=== PATIENT | male | born 1995 | race Caucasian/White ===

== ENCOUNTER 2022-11-06 10:14 | Outpatient (REF) | payer OTHER, SELFPAY ==
--- NOTE | ~2022-11-06 | XR_ITS ---
EXAMINATION: XR BILATERAL HIPS WITH AP PELVIS CLINICAL INFORMATION: Right hip pain with prosthetic right leg COMPARISON: None available. TECHNIQUE: AP view of the pelvis and 3 additional views of each hip were obtained. FINDINGS: The bones and soft tissues are normal. No fracture. Sacroiliac and hip joints are normal. Pubic symphysis is normal. No abnormal soft tissue calcifications. XR/XR hips WARD min 3V IMPRESSION: Normal pelvis and hips.
[2022-11-06 12:17] LABS: C Reactive Protein 0.52 mg/dL (< or = 0.50)
[2022-11-06 12:58] LABS: Rheumatoid Factor < 13.0 IU/mL (<15.0)
[2022-11-06 15:03] LABS: Erythrocyte Sedimentation Rate 5 MM/HR (0-15)
[2022-11-08 12:48] LABS: Antibody to SS-A Antigen <1.0 NEG AI (<1.0 NEG); Antibody to SS-B Antigen <1.0 NEG AI (<1.0 NEG)
[2022-11-08 14:42] LABS: Cyclic Citrullinated Peptide <16 UNITS
[2022-11-10 15:28] LABS: Anti Nuclear Antibody Screen NEGATIVE (NEGATIVE)
[2022-11-14 14:29] LABS: HLA B27 Negative (Negative)
== END 2022-11-06 10:15 | disposition home or self-care (01) ==
LOC: HO.HMGCX 10:14
PROVIDERS: PCP Nurse Practitioner Family; Visit Provider Nurse Practitioner Family
DX: M25.50 Pain in unspecified joint (principal); M25.552 Pain in left hip; M25.551 Pain in right hip
CPT/HCPCS: 36415; 73522; 85652; 86038; 86039; 86140; 86200; 86235; 86431; 86812

== ENCOUNTER 2023-05-06 08:33 | Outpatient (AMB) | payer OTHER, SELFPAY ==
[2023-05-06 08:38] VITALS: BP 120/68; PULSE 62; O2SAT 99; BMI 29.2
--- NOTE | 2023-05-06 08:38 | MHC.PC.OV ---
Vital Signs 05/06/23 08:38 Height 5 ft 7 in Weight 186 lb 4 oz BMI 29.2 BP 120/68 Blood Pressure Location Rt brachial Position Sitting Pulse 62 Pulse Source Pulse Oximeter Pulse Oximetry (%) 99 Oxygen Delivery Method Room Air Intake Visit Reasons: 6 month follow up arthralgia Allergies No Known Allergies Allergy (Verified 05/06/23 08:50) Medication List - Last Reconciled 05/06/23 by ADELA Carter omeprazole 20 mg PO DAILY Tobacco use date assessed: 05/06/23 Dental Screening Dental Screen Date: 05/06/23 Did you have a dental visit in the last 12 months?: Yes Did you have a dental problem in the last 6 months where you did not have access to dental care?: No Was dental information given to patient?: Patient has dentist HPI 6 month follow up arthralgia HPI Details Pt is here for a PE. Will order labs. Pt has a prosthetic right leg (AKA). He is going for a new prosthetic next month. [facility] Social History Housing: House Patient Tobacco Use Status: Current everyday Tobacco user Cigarettes Per Day: 5 e-Cigarette/Vaping Use: Never Used service: No Current occupational status: employed Cognitive needs: No Hearing needs: No Vision needs: Yes Questionnaire Thrive Questionnaire Date Thrive assessed: 05/07/22 JOCELYN-7 AMB Questionnaire JOCELYN-7 Date JOCELYN - 7 assessed: 05/07/22 Source: Developed by Drs. Zion Mckenna, Sabi Rao, Eliseo Mayfield and colleagues, with an educational radha from [employer] [place]. Review of Systems Const Denies chills and Denies fever(s) Eyes Denies blurry vision ENT Denies vertigo, Denies dizziness and Denies sore throat Card Denies chest pain at rest, Denies chest pain with activity, Denies diaphoresis, Denies dyspnea and Denies dyspnea on exertion Resp Denies cough, Denies dyspnea, Denies dyspnea on exertion and Denies wheezing GI Denies abdominal pain, Denies melena, Denies hematochezia, Denies constipation, Denies diarrhea and Denies loose stools Denies hematuria Musc Denies numbness and Denies tingling Skin/Breast Denies lesions Neuro Denies vertigo, Denies dizziness, Denies numbness and Denies tingling Psych Denies anxiety, Denies depression, Denies homicidal ideation, Denies suicidal ideation and Denies other (substance abuse) Aller/Immun Denies wheezing Physical exam (Primary Care) Vital Signs: Last Vital Signs Pulse 62 05/06/23 08:38 BP 120/68 05/06/23 08:38 Pulse Ox 99 05/06/23 08:38 Oxygen Delivery Method Room Air 05/06/23 08:38 BMI result Body Mass Index 29.2 Tobacco/Smoking Status: Tobacco use Status Tobacco use date assessed 05/06/23 05/06/23 08:44 Patient Tobacco Use Status Current everyday Tobacco 05/06/23 08:44 e-Cigarette/Vaping Use Never Used 05/06/23 08:44 Thrive Assessment: Date of Thrive Assessment Date Thrive assessed 05/07/22 05/06/23 08:44 Const General: cooperative Nutritional Appearance: well nourished Orientation/consciousness: patient oriented x3 HENMT Head: Yes normal to inspection, Yes normocephalic and Yes atraumatic Ears: TM's normal bilaterally Eyes General: appearance normal, both eyes and all related structures Alignment and Position: alignment normal and position normal Neck Neck: Yes normal visual inspection and Yes no lymphadenopathy Thyroid: Thyroid normal Resp Effort & Inspection: normal respiratory effort Auscultation: clear to auscultation bilaterally Cardio Rate: regular rate Rhythm: regular rhythm Heart sounds: S1 normal heart sound present, S2 normal heart sound present and no murmurs GI Palpation (GI): Soft to palpation and nontender Auscultation: normal bowel sounds Male General Exam: Yes normal external exam Penis: normal penis Scrotum: scrotum normal, testes descended bilaterally and no inguinal hernias Testes: no testicular mass Skin Rashes: no rashes Neuro General: patient oriented x3 Romberg Test: Negative Extrem Other: prosthetic right leg (AKA) Psych Appearance: grossly normal Mental Status: mental status grossly normal Speech and movement: Normal speech and movement present Affect: normal affect Attitude: cooperative Thought process: Normal thought process present Thought content: Normal thought content present Insight: Good insight present (Psych) Judgement: Good judgement present (Psych) Assessment and Plan Assessment & Plan (1) Physical exam: Code(s): Z00.00 - Encounter for general adult medical examination without abnormal findings Plan The patient agreed to the use of a medical education manager for this encounter. Scribed for ADELA Ray by Janelle Franco medical education manager, on 05/06/2023 at 08:45 EST. Coding Level of Care Code Est Pt Prev Care 18-39y(23643) Diagnoses Physical exam Z00.00
== END 2023-05-06 08:57 | disposition home or self-care (01) ==
PROVIDERS: Visit Provider Nurse Practitioner Family
DX: Z00.00 Encounter for general adult medical examination without abnormal findings (principal)
CPT/HCPCS: 99395

== ENCOUNTER 2023-05-22 14:20 | Outpatient (REF) | payer OTHER, SELFPAY ==
[2023-05-22 16:30] LABS: MANUAL DIFF FLAG NO
[2023-05-22 16:38] LABS: Basophils Percent Auto 0.9 % (0-2); Eosinophils Absolute Auto 0.2 X10*3/uL (0.0-0.4); Eosinophils Percent Auto 4.9 % (0-4); Hemoglobin 14.7 g/dl (14.0-18.0); Imm Gran Abs Auto 0.01 X10*3/uL (0.00-0.03); Imm Gran Pct Auto 0.2 % (0.0-0.4); Lymphocytes Absolute Auto 1.1 X10*3/uL (1.2-4.9); Lymphocytes Percent Auto 23.7 % (20-40); Mean Corpuscular HGB Conc 33.4 g/dl (31.0-36.0); Mean Corpuscular Hemoglobin 29.9 pg (27.0-33.0); Mean Corpuscular Volume 89.4 fL (80.0-98.0); Mean Platelet Volume 8.6 fL (9.4-12.4); Monocytes Absolute Auto 0.6 X10*3/uL (0.1-1.2); Monocytes Percent Auto 12.4 % (2-11); Neutrophils Absolute Auto 2.7 x10*3/uL (2.0-8.3); Neutrophils Percent Auto 57.9 % (45-73); Platelet Count 257 X10*3/uL (160-400); Red Blood Count 4.92 X10*6/uL (4.60-5.80); Red Cell Distribution Width 12.9 % (11.0-16.0); White Blood Count 4.7 X10*3/uL (4.8-10.8)
[2023-05-22 16:52] LABS: Alanine Aminotransferase 31 U/L (0-40); Albumin Level 4.2 g/dL (3.5-5.0); Alkaline Phosphatase 86 U/L (39-117); Amylase 36 U/L (28-100); Anion Gap 16 (12-20); Aspartate Amino Transferase 38 U/L (5-37); Bilirubin Total 0.3 mg/dL (0.0-1.0); Blood Urea Nitrogen 23 mg/dL (9-16); Calcium 9.7 mg/dL (8.4-10.2); Carbon Dioxide 23 mmol/L (22-29); Chloride 106 mmol/L (96-108); Estimated Glomerular Filt Rate > 60; Glucose Random 84 mg/dL (60-115); Potassium 4.8 mmol/L (3.3-5.1); Sodium 140 mmol/L (135-145); Total Protein 7.1 g/dL (6.5-8.0)
[2023-05-22 17:18] LABS: Valproate 50.3 mcg/mL (50.0-100.0)
== END 2023-05-22 14:21 | disposition home or self-care (01) ==
LOC: HO.HMGCLDS 14:20
PROVIDERS: PCP Nurse Practitioner Family; Visit Provider Clinical Nurse Specialist Psychiatric/Mental Health
DX: F39 Unspecified mood [affective] disorder (principal)
CPT/HCPCS: 36415; 80053; 80164; 82150; 85025

== ENCOUNTER 2024-05-19 11:02 | Outpatient (AMB) | payer OTHER, SELFPAY ==
[2024-05-19 11:07] VITALS: BP 106/70; PULSE 116; O2SAT 97; BMI 30.9
--- NOTE | 2024-05-19 11:07 | A.OFFPC_ITS ---
Vital Signs 05/19/24 11:07 05/19/24 11:15 Height 5 ft 7 in Weight 197 lb 6 oz BMI 30.9 BP 106/70 Blood Pressure Location Rt brachial Position Sitting Pulse 116 H 99 Pulse Source Pulse Oximeter Pulse Oximeter Pulse Oximetry (%) 97 Intake Visit Reasons: annual PE Intake Note: pt is here for PE Refrigeration Engineer Required: No Accompanied by: Self / Same As Patient Allergies No Known Allergies Allergy (Verified 05/19/24 12:27) Medication List - Last Reconciled 05/19/24 by ADELA Carter bupropion HCl XL 300 mg PO DAILY clonidine HCl 0.2 mg PO TID divalproex 500 mg PO TID gabapentin 300 mg PO TID omeprazole 20 mg PO DAILY quetiapine 100 mg PO BEDTIME Tobacco use date assessed: 05/19/24 Dental Screening Dental Screen Date: 05/19/24 Did you have a dental visit in the last 12 months?: Yes Did you have a dental problem in the last 6 months where you did not have access to dental care?: No Was dental information given to patient?: Patient has dentist HPI annual PE HPI Details Pt is here for a PE. Will order labs. Pt continues to smoke. Educated on the dangers of this. Pt has a psychiatrist [facility] Surgical History No pertinent past surgical history Social History Housing: House Patient Tobacco Use Status: Current everyday Tobacco user Cigarettes Per Day: 5 e-Cigarette/Vaping Use: Never Used service: No Current occupational status: employed Cognitive needs: No Hearing needs: No Vision needs: Yes Questionnaire PHQ-9 Over the last 2 weeks, how often have you been bothered by any of the following problems? 1. Little interest or pleasure in doing things: not at all 2. Feeling down, depressed, or hopeless: not at all 3. Trouble falling or staying asleep, or sleeping too much: not at all 4. Feeling tired or having little energy: not at all 5. Poor appetite or overeating: nearly every day 6. Feeling bad about yourself - or that you are a failure or have let yourself or your family down: not at all 7. Trouble concentrating on things, such as reading the newspaper or watching television: not at all 8. Moving or speaking so slowly that other people could have noticed. Or the opposite - being so fidgety or restless that you have been moving around a lot more than usual: not at all 9. Thoughts that you would be better off or of hurting yourself in some way: not at all Total score: 3 Depression Screening Interpretation: Negative Depression Screening Done: Yes 15187 - PHQ-9 Billing: Yes Source: Developed by Drs. Zion Mckenna, Sabi Rao, Eliseo Mayfield and colleagues, with an educational radha from [employer]. Thrive Questionnaire Date Thrive assessed: 05/19/24 I am a: Patient What is your living situation today?: I have a steady place to live Within the past 12 months, did the food you bought not last and you didn't have the money to get more?: Never true Within the past 12 months, did you worry whether your food would run out before you got money to buy more?: Never true Do you have trouble paying for medicines?: No Do you have trouble getting transportation to medical appointments?: No Do you have trouble paying your heating and electricity bill?: No Do you have trouble taking care of your child, family member or friend?: No Do you have trouble with day-to-day activities such as bathing, preparing meals, shopping, managing finances, etc.?: No Are you currently unemployed and looking for a job?: I choose not to answer this question Are you interested in more education?: Yes Please select the resources that you would like help with: Job search/training Currently or been in a relationship where the following occur: No concerns reported THRIVE Score: 0 AUDIT C Alcohol Use Questionnaire (AUDIT-C) 1. How often do you have a drink containing alcohol?: Never 3. How often do you have six or more drinks on one occasion?: Never Total Score: 0 Score Reviewed/Action Taken: Yes JOCELYN-7 AMB Questionnaire JOCELYN-7 Date JOCELYN - 7 assessed: 05/19/24 Feeling nervous, anxious, or on edge: 0 = Not at all Not being able to stop or control worryin = Not at all Worrying too much about different things: 0 = Not at all Trouble relaxin = Not at all Being so restless that it is hard to sit still: 0 = Not at all Becoming easily annoyed or irritable: 1 = Several days Feeling afraid as if something awful might happen: 0 = Not at all Total JOCELYN-7 score (0-4 normal; 5-9 mild; 10-14 moderate; 15-21 severe): 1 Source: Developed by Drs. Zion Mckenna, Sabi Rao, Eliseo Mayfield and colleagues, with an educational radha from [employer]. JOCELYN-7 Assessment Billing JOCELYN-7 Assessment Tool: JOCELYN-7 Assessment 23150 Review of Systems Const Denies chills and Denies fever(s) Eyes Denies blurry vision ENT Denies vertigo, Denies dizziness and Denies sore throat Card Denies chest pain at rest, Denies chest pain with activity, Denies diaphoresis, Denies dyspnea and Denies dyspnea on exertion Resp Denies cough, Denies dyspnea, Denies dyspnea on exertion and Denies wheezing GI Denies abdominal pain, Denies melena, Denies hematochezia, Denies constipation, Denies diarrhea and Denies loose stools Denies hematuria Musc Denies numbness and Denies tingling Skin/Breast Denies lesions Neuro Denies vertigo, Denies dizziness, Denies numbness and Denies tingling Psych Denies anxiety, Denies depression, Denies homicidal ideation, Denies suicidal ideation and Denies other (substance abuse) Aller/Immun Denies wheezing Physical exam (Primary Care) Vital Signs: Last Vital Signs Pulse 99 05/19/24 11:15 BP 106/70 05/19/24 11:07 Pulse Ox 97 05/19/24 11:07 BMI result Body Mass Index 30.9 Tobacco/Smoking Status: Tobacco use Status Tobacco use date assessed 05/19/24 05/19/24 11:08 Patient Tobacco Use Status Current everyday Tobacco 05/19/24 11:08 e-Cigarette/Vaping Use Never Used 05/19/24 11:08 PHQ-9: PHQ-9 Score PHQ-9: Total score 3 05/19/24 11:38 Depression Screening Interpretation: Negative Thrive Assessment: Date of Thrive Assessment Date Thrive assessed 10/09/24 10/09/24 11:08 Currently or been in a relationship where the following occur: No concerns reported Const General: cooperative Nutritional Appearance: well nourished Orientation/consciousness: patient oriented x3 HENMT Head: Yes normal to inspection, Yes normocephalic and Yes atraumatic Ears: TM's normal bilaterally Eyes General: appearance normal, both eyes and all related structures Alignment and Position: alignment normal and position normal Neck Neck: Yes normal visual inspection, Yes no lymphadenopathy and Yes supple Resp Effort & Inspection: normal respiratory effort Auscultation: clear to auscultation bilaterally Cardio Rate: regular rate Rhythm: regular rhythm Heart sounds: S1 normal heart sound present, S2 normal heart sound present and no murmurs GI Palpation (GI): Soft to palpation and nontender Auscultation: normal bowel sounds Male General Exam: Yes normal external exam Penis: normal penis Scrotum: scrotum normal, testes descended bilaterally and no inguinal hernias Testes: no testicular mass Neuro General: patient oriented x3, moves all extremities, no focal motor deficits and deep tendon reflexes 2+ bilaterally Romberg Test: Negative Extrem Other: right AKA, prosthetic present Psych Appearance: grossly normal Mental Status: mental status grossly normal Speech and movement: Normal speech and movement present Affect: normal affect Attitude: cooperative Thought process: Normal thought process present Thought content: Normal thought content present Insight: Good insight present (Psych) Judgement: Good judgement present (Psych) Coding Level of Care Code Est Pt Prev Care 18-39y(78892) Diagnoses Physical exam Z00.00 Smoker F17.200 Additional Codes JOCELYN-7 Assessment Billing - JOCELYN-7 Assessment Tool: JOCELYN-7 Assessment 41062 ([id number]) Assessment & Plan Assessment & Plan (1) Physical exam: Code(s): Z00.00 - Encounter for general adult medical examination without abnormal findings Category: Medical Plan: Labs ordered (2) Smoker: Code(s): F17.200 - Nicotine dependence, unspecified, uncomplicated Category: Social Hx Plan: Educated on the dangers of smoking Plan The patient agreed to the use of a medical management trainer for this encounter. Scribed for ADELA Ray by Janelle Franco medical management trainer, on 05/19/2024 at 11:35 EST. Orders: Orders Complete Blood Count Auto Diff Today Z00.00 - Encounter for general adult medical examination without abnormal findings Comprehensive [place]. Panel Fast Today Z00.00 - Encounter for general adult medical examination without abnormal findings TSH reflex Free T4 Today Z00.00 - Encounter for general adult medical examination without abnormal findings UA CC w/rflx Micro + Cult Today Z00.00 - Encounter for general adult medical examination without abnormal findings Lipid Panel Today Z00.00 - Encounter for general adult medical examination without abnormal findings
[2024-05-19 11:15] VITALS: PULSE 99
== END 2024-05-19 11:50 | disposition home or self-care (01) ==
PROVIDERS: PCP Nurse Practitioner Family; Visit Provider Nurse Practitioner Family
DX: Z00.00 Encounter for general adult medical examination without abnormal findings (principal); F17.200 Nicotine dependence, unspecified, uncomplicated

== ENCOUNTER → 2024-05-19 11:02 | Outpatient (BNVA) | payer OTHER, SELFPAY | PROVIDERS: PCP Nurse Practitioner Family; Visit Provider Nurse Practitioner Family | DX: Z00.00 Encounter for general adult medical examination without abnormal findings (principal); F17.200 Nicotine dependence, unspecified, uncomplicated; Z71.6 Tobacco abuse counseling | CPT/HCPCS: 96127 ==

== ENCOUNTER 2024-05-28 09:38 | Outpatient (REF) | payer OTHER, SELFPAY ==
[2024-05-28 11:02] LABS: MANUAL DIFF FLAG NO
[2024-05-28 11:15] LABS: Basophils Absolute Auto 0.1 X10*3/uL (0.0-0.2); Basophils Percent Auto 0.7 % (0-2); Eosinophils Absolute Auto 0.2 X10*3/uL (0.0-0.4); Eosinophils Percent Auto 2.6 % (0-4); Hematocrit 41.8 % (42.0-52.0); Hemoglobin 13.9 g/dl (14.0-18.0); Imm Gran Abs Auto 0.03 X10*3/uL (0.00-0.03); Imm Gran Pct Auto 0.4 % (0.0-0.4); Lymphocytes Absolute Auto 1.8 X10*3/uL (1.2-4.9); Mean Corpuscular HGB Conc 33.3 g/dl (31.0-36.0); Mean Corpuscular Volume 90.1 fL (80.0-98.0); Mean Platelet Volume 9.1 fL (9.4-12.4); Monocytes Absolute Auto 0.5 X10*3/uL (0.1-1.2); Monocytes Percent Auto 6.8 % (2-11); Neutrophils Absolute Auto 4.4 x10*3/uL (2.0-8.3); Neutrophils Percent Auto 63.5 % (45-73); Platelet Count 288 X10*3/uL (160-400); Red Blood Count 4.64 X10*6/uL (4.60-5.80); White Blood Count 6.9 X10*3/uL (4.8-10.8)
[2024-05-28 11:49] LABS: Alanine Aminotransferase 14 U/L (0-40); Alkaline Phosphatase 74 U/L (39-117); Anion Gap 11 (12-20); Aspartate Amino Transferase 16 U/L (5-37); Bilirubin Total 0.3 mg/dL (0.0-1.0); Blood Urea Nitrogen 18 mg/dL (9-16); Calcium 9.3 mg/dL (8.4-10.2); Carbon Dioxide 28 mmol/L (22-29); Chloride 108 mmol/L (96-108); Cholesterol 188 mg/dL (<200); Estimated Glomerular Filt Rate > 60; Glucose Fasting 109 mg/dL (60-99); HDL Cholesterol 33 mg/dL (>40); LDL Cholesterol Calculated 114 mg/dL (<100); Potassium 4.5 mmol/L (3.3-5.1); Sodium 142 mmol/L (135-145); Total Protein 6.6 g/dL (6.5-8.0); Triglycerides 207 mg/dL (<150)
[2024-05-28 12:12] LABS: TSH reflex Free T4 1.19 uIU/mL (0.32-4.0)
[2024-05-28 13:22] LABS: Appearance Urine Cloudy; Color Urine Yellow; Glucose Urine UA Negative (Negative); Leukocyte Esterase Urine Negative (Negative); Nitrite Urine Negative (Negative); PH 8.5 (5.0-9.0); Specific Gravity - Urine 1.025 (1.005-1.025); Urine Blood Negative (Negative); Urine Ketones Trace mg/dL (Negative); Urine Protein Negative (Neg-Trace)
== END 2024-05-28 09:39 | disposition home or self-care (01) ==
LOC: HO.HMGCLDS 09:38
PROVIDERS: PCP Nurse Practitioner Family; Visit Provider Nurse Practitioner Family
DX: Z00.00 Encounter for general adult medical examination without abnormal findings (principal)
CPT/HCPCS: 36415; 80053; 80061; 81003; 84443; 85025

== ENCOUNTER 2024-06-17 08:57 | Outpatient (REF) | payer OTHER, SELFPAY ==
[2024-06-17 13:29] LABS: MANUAL DIFF FLAG NO
[2024-06-17 13:38] LABS: Basophils Absolute Auto 0.1 X10*3/uL (0.0-0.2); Basophils Percent Auto 0.7 % (0-2); Eosinophils Absolute Auto 0.3 X10*3/uL (0.0-0.4); Eosinophils Percent Auto 3.4 % (0-4); Hematocrit 49.2 % (42.0-52.0); Hemoglobin 16.4 g/dl (14.0-18.0); Imm Gran Abs Auto 0.03 X10*3/uL (0.00-0.03); Imm Gran Pct Auto 0.3 % (0.0-0.4); Immature Retic Fraction 8.9 % (2.3-13.4); Lymphocytes Absolute Auto 2.1 X10*3/uL (1.2-4.9); Lymphocytes Percent Auto 23.4 % (20-40); Mean Corpuscular HGB Conc 33.3 g/dl (31.0-36.0); Mean Corpuscular Hemoglobin 29.9 pg (27.0-33.0); Mean Corpuscular Volume 89.8 fL (80.0-98.0); Mean Platelet Volume 9.4 fL (9.4-12.4); Monocytes Absolute Auto 0.7 X10*3/uL (0.1-1.2); Monocytes Percent Auto 7.7 % (2-11); Neutrophils Absolute Auto 5.7 x10*3/uL (2.0-8.3); Neutrophils Percent Auto 64.5 % (45-73); Platelet Count 284 X10*3/uL (160-400); Red Blood Count 5.48 X10*6/uL (4.60-5.80); Retic HGB Equivalent 34.4 pg (30.0-35.0); Reticulocyte Percent 1.6 % (0.5-1.8); Reticulocytes Absolute 0.086 X10*6/uL (0.026-0.095); White Blood Count 8.9 X10*3/uL (4.8-10.8)
[2024-06-17 13:56] LABS: Alanine Aminotransferase 18 U/L (0-40); Albumin Level 4.9 g/dL (3.5-5.0); Alkaline Phosphatase 92 U/L (39-117); Anion Gap 15 (12-20); Aspartate Amino Transferase 30 U/L (5-37); Bilirubin Total 0.5 mg/dL (0.0-1.0); Blood Urea Nitrogen 22 mg/dL (9-16); Calcium 9.7 mg/dL (8.4-10.2); Carbon Dioxide 24 mmol/L (22-29); Chloride 106 mmol/L (96-108); Estimated Glomerular Filt Rate > 60; Glucose Fasting 106 mg/dL (60-99); Iron 78 mcg/dL (45-160); Percent Iron Saturation 25 % (15-50); Potassium 4.6 mmol/L (3.3-5.1); Sodium 140 mmol/L (135-145); Total Iron Binding Capacity 314 mcg/dL (228-428); Total Protein 8.1 g/dL (6.5-8.0); Unsaturated Iron Binding 236 ug/dL
[2024-06-17 14:12] LABS: Ferritin 165 ng/mL (20-250)
[2024-06-17 14:23] LABS: Folate 7.6 ng/mL (> or = 4.0); Vitamin B12 1190 pg/mL (200-900)
[2024-06-21 16:48] LABS: Hematocrit 49.5 % (38.5-50.0); Hemoglobin 16.4 g/dL (13.2-17.1); MCH 30.1 pg (27.0-33.0); RBC 5.44 Million/uL (4.20-5.80); RDW 13.6 % (11.0-15.0)
== END 2024-06-17 08:58 | disposition home or self-care (01) ==
LOC: HO.HMGCLDS 08:57
PROVIDERS: PCP Nurse Practitioner Family; Visit Provider Nurse Practitioner Family
DX: D64.9 Anemia, unspecified (principal); R73.01 Impaired fasting glucose
CPT/HCPCS: 36415; 80053; 82607; 82728; 82746; 83020; 83540; 85014; 85018; 85025; 85041; 85045

== ENCOUNTER 2025-05-21 13:00 | Outpatient (REF) | payer OTHER, SELFPAY ==
--- NOTE | ~2025-05-21 | XR_ITS ---
CLINICAL HISTORY: R04.2 - Hemoptysis 2 view chest x-ray. Comparison: None Findings: Heart size normal No acute fracture. Impression: Lungs are clear. This document has been electronically signed by: Tu Bear MD on 05/21/2025 15:02:41
== END 2025-05-21 13:01 | disposition home or self-care (01) ==
LOC: HO.HMGCX 13:00
PROVIDERS: PCP Nurse Practitioner Family; Visit Provider Family Medicine
DX: Z00.00 Encounter for general adult medical examination without abnormal findings (principal); R04.2 Hemoptysis; R06.02 Shortness of breath; R05.9 Cough, unspecified; B34.9 Viral infection, unspecified; Z79.899 Other long term (current) drug therapy
CPT/HCPCS: 71046; 99212

== ENCOUNTER 2025-05-21 13:00 | Outpatient (AMB) | payer OTHER, SELFPAY ==
--- OUTSIDE RECORDS SUMMARY | 2025-05-21 13:03 | XMS_ITS | Clinical Summary ---
Author Organization [facility] Address [address] [place] [id number] Phone Care Team Providers Care Payroll And Benefits Analyst Name Role Phone Rambo Silva SALESPERSON USED CARS Primary Care Provider + Allergies No known active allergies Medications No known medications Social History Tobacco Use Types Packs/Day Years Used Date Smoking Tobacco: Never Assessed Education Answer Date Recorded Are you interested in more education? Not on christelle e 12/07/2022 Are you concerned about learning? Not on file 12/07/2022 No 12/07/2022 No 12/07/2022 Digital Access Answer Date Recorded No 01/04/2023 No 01/04/2023 Reliable internet access at home? Not on file 01/04/2023 Device with a working camera? Not on file Sex and Gender Information Value Date Recorded Sex Assigned at Male 12/24/2021 11:53 AM EDT Legal Sex Male 11:51 AM EDT Gender Identity Male 12/24/2021 11:53 AM EDT Sexual Orientation Straight 12/24/2021 11 :53 AM EDT Plan of Treatment Health Maintenance Due Date Last Done Comments DEPRESSION SCREENING 2005 SMOKING Hx and SMOKELESS TOBACCO SCREENING 2006 HEPATITIS C SCREENING 2011 HIV ONE-TIME SCREENING (18-6 5 YEARS) 2011 INFLUENZA VACCINE (#1) 2025 8, 07/25/2015 COVID-19 VACCINE (2024-2 6 season) 2025 12/24/2020, 11/26/2020 Adult Td,Tdap Booster 10/18/2026 10/18/2016 , 12/01/2009 MENINGOCOCCAL VACCINES (ACWY) Completed , 10/18/2005 HEPATITIS A VACCINES Aged Out No long er eligible based on patient's age to complete this topic HIB VACCINES Aged Out No longer eligi ble based on patient's age to complete this topic MENINGOCOCCAL VACCINES (B) Aged Out N o longer eligible based on patient's age to complete this topic PNEUMOCOCCAL VACCINES (0-49 years) Aged Out No longer eligible b ased on patient's age to complete this topic Medical Devices Not on file Insurance MEDICARE PART A & B [facility] ONE CARE MEDICARE REPLACEMENT [place] [id number] MEDICARE PART A & B ONE CARE MEDICARE REPLACEMENT [place] [id number] MEDICARE PART A & B MEDICARE PART A & B MEDICARE PART A & B [facility] MEDICARE REPLACEMENT MEDICARE PART A & B MEDICARE PART A & B ONE CARE MEDICARE REPLACEMENT Member Subscriber Plan / Payer (Ef fective 2022-) Name:Woodrow Newman Relation to Subscriber:Self Name:Woodrow Newman Payer ID:[id number] (NAIC) Group ID:[id number] Type:Medicare [address] [facility] MEDICARE PART A & B CARE MEDICARE REPLACEMENT [place] N[place] [facility] MEDICARE PART A & B [facility] ONE CARE MEDICARE REPLACEMENT Care Teams Payroll And Benefits Analyst Relationship Specialty Start Date End Date Rambo Silva NP [facility] [place] [address] PCP - General Family Medicine 12/24/21 Additional Source Comments The information contained in this document represents components of the legal health record. It is not the complete legal health record.[facility]
--- NOTE | 2025-05-21 13:04 | AM.OFFWIN_ITS ---
Intake Vital Signs 05/21/25 13:11 Height 5 ft 7 in Weight 206 lb BMI 32.3 BP 100/70 Blood Pressure Location Rt brachial Position Sitting Respiration 16 Pulse 97 Pulse Source Pulse Oximeter Temp 98.1 F Temp Source Oral Pulse Oximetry (%) 98 Oxygen Delivery Method Room Air Intake Visit Reasons: EP, coughing up blood, SOB w/ exertion Intake Note: Pt is here today c/o coughing up blood and SOB w/excertion: Pt also vapes at times: one episodes this morning Patient Tobacco Use Status: Current everyday Tobacco user Allergies No Known Allergies Allergy (Verified 05/21/25 13:04) Medication List - Last Reconciled 05/21/25 by Jonny Booth MD bupropion HCl XL 300 mg PO DAILY cephalexin 500 mg PO Q12H 10 days clonidine HCl 0.2 mg PO TID gabapentin 300 mg PO TID omeprazole 20 mg PO DAILY quetiapine 100 mg PO BEDTIME HPI EP, coughing up blood, SOB w/ exertion HPI Details Patient presents with complaints of shortness of breath on exertion and cough with hemoptysis Symptoms x3 days Denies fever, denies chest pain or epigastric pain. No recent GERD. Patient is a smoker and also smokes weed. [facility] Surgical History No pertinent past surgical history Social History Housing: House Patient Tobacco Use Status: Current everyday Tobacco user Cigarettes Per Day: 5 e-Cigarette/Vaping Use: Never Used service: No Current occupational status: employed Cognitive needs: No Hearing needs: No Vision needs: Yes Review of Systems Const Details: See HPI Physical Exam Vital Signs: Last Vital Signs Temp 98.1 F 05/21/25 13:11 Pulse 97 05/21/25 13:11 Resp 16 05/21/25 13:11 BP 100/70 05/21/25 13:11 Pulse Ox 98 05/21/25 13:11 Oxygen Delivery Method Room Air 05/21/25 13:11 BMI result Body Mass Index 32.3 Const General: no acute distress and well developed Nutritional Appearance: well nourished Orientation/consciousness: patient oriented x3 HEENT Other: Posterior pharynx normal Head: Yes normocephalic and Yes atraumatic Eyes General: appearance normal, both eyes and all related structures Pupils: Equal, round and reactive pupils present EOM: EOMs intact bilaterally Resp Other: Coarse breath sounds throughout with fine crackles Effort & Inspection: normal respiratory effort Cardio Rate: regular rate Rhythm: regular rhythm Heart sounds: S1 normal heart sound present, S2 normal heart sound present, no gallops, no murmurs and no rubs Neuro General: patient oriented x3 and gait normal Cranial nerves: Yes Equal, round and reactive pupils present Psych Affect: normal affect Assessment & Plan Assessment & Plan (1) Cough with hemoptysis: Code(s): R04.2 - Hemoptysis Plan: 3 days of shortness of breath and cough with hemoptysis. Concern for pneumonia versus bronchitis Sending a script for cephalexin and prednisone; considered azithromycin but can cause QT prolongation with quetiapine. Call or return to office if worsening or not improving. Patient is a smoker and I advised we and cessation Orders: Orders Complete Blood Count Auto Diff Today ADELA Carter Z00.00 - Encounter for general adult medical examination without abnormal findings Lipid Panel Today ADELA Carter Z00.00 - Encounter for general adult medical examination without abnormal findings UA CC w/rflx Micro + Cult Today ADELA Carter Z00.00 - Encounter for general adult medical examination without abnormal findings XR chest 2V Today Jonny Booth MD R04.2 - Hemoptysis SARS-CoV2/FLU/RSV Today Jonny Booth MD B34.9 - Viral infection, unspecified, R04.2 - Hemoptysis Comprehensive [place]. Panel Fast Today ADELA Carter Z00.00 - Encounter for general adult medical examination without abnormal findings TSH reflex Free T4 Today ADELA Carter Z00.00 - Encounter for general adult medical examination without abnormal findings Vitamin D 25-OH Total Today ADELA Carter Z00.00 - Encounter for general adult medical examination without abnormal findings Medications: New cephalexin 500 mg PO Q12H 20 caps 0RF 10 days Jonny Booth MD R04.2 - Hemoptysis prednisone 40 mg (2 x 20 mg) PO DAILY 8 tabs 0RF 4 days Jonny Booth MD Coding Level of Care Code Est Pt Level 3 (46650) Diagnoses Cough with hemoptysis R04.2
[2025-05-21 13:11] VITALS: BP 100/70; PULSE 97; RESP 16; TEMP 36.7; O2SAT 98; BMI 32.3
== END 2025-05-21 14:37 | disposition home or self-care (01) ==
PROVIDERS: PCP Nurse Practitioner Family; Visit Provider Family Medicine
DX: R04.2 Hemoptysis (principal)

== ENCOUNTER → 2025-05-21 13:44 | Outpatient (BNV) | payer OTHER, SELFPAY | PROVIDERS: PCP Nurse Practitioner Family; Visit Provider Radiology Diagnostic Radiology | DX: R04.2 Hemoptysis (principal) | CPT/HCPCS: 71046 ==

== ENCOUNTER 2025-05-28 10:58 | Outpatient (REF) | payer OTHER, SELFPAY ==
--- OUTSIDE RECORDS SUMMARY | 2025-05-28 11:01 | XMS_ITS | Clinical Summary ---
Author Organization [facility] Address [address] [place] [phone] Phone Care Team Providers Care Doorperson Name Role Phone Rambo Silva FOOTWEAR PRODUCTION MACHINE OPERATOR Primary Care Provider + Allergies No known [...] file Insurance MEDICARE PART A & B [facility] ONE CARE MEDICARE REPLACEMENT [place] [id number] MEDICARE PART A & B ONE CARE MEDICARE REPLACEMENT [place] [id number] MEDICARE PART A & B MEDICARE PART A & B MEDICARE PART A & B [facility] ONE [facility] MEDICARE REPLACEMENT MEDICARE PART A & B MEDICARE PART A & B ONE CARE MEDICARE REPLACEMENT Member Subscriber Plan / Payer (Ef fective 2022-) Name:Woodrow Newman Relation to Subscriber:Self Name:Woodrow Newman Payer ID:[id number] (NAIC) Group ID:[id number] Type:Medicare [address] [facility] MEDICARE PART A & B CARE MEDICARE REPLACEMENT [place]AK [facility] MEDICARE PART A & B [facility] ONE CARE MEDICARE REPLACEMENT Care Teams Doorperson Relationship Specialty Start Date End Date Rambo Silva NP [facility] [place] [address] PCP - General Family Medicine 12/24/21 Additional Source Comments The information contained in this document represents components of the legal health record. It is not the complete legal health record.[facility]
[2025-05-28 13:41] LABS: MANUAL DIFF FLAG NO
[2025-05-28 13:44] LABS: Hematocrit 49.1 % (42.0-52.0); Hemoglobin 16.2 g/dl (14.0-18.0); Imm Gran Abs Auto 0.04 X10*3/uL (0.00-0.03); Imm Gran Pct Auto 0.4 % (0.0-0.4); Lymphocytes Absolute Auto 2.2 X10*3/uL (1.2-4.9); Mean Corpuscular HGB Conc 33.0 g/dl (31.0-36.0); Mean Corpuscular Hemoglobin 29.5 pg (27.0-33.0); Mean Corpuscular Volume 89.3 fL (80.0-98.0); NRBC Abs Auto 0.000 X10*3/uL (0.0-0.012); NRBC Pct Auto 0.0 /100WBC (0.0-0.2); Platelet Count 363 X10*3/uL (160-400); Red Blood Count 5.50 X10*6/uL (4.60-5.80); White Blood Count 10.6 X10*3/uL (4.8-10.8)
[2025-05-28 13:47] LABS: Appearance Urine Clear; Glucose Urine UA Negative (Negative); PH 7.0 (5.0-9.0); Specific Gravity - Urine 1.025 (1.005-1.025)
[2025-05-28 14:09] LABS: Alanine Aminotransferase 50 U/L (0-40); Albumin Level 5.2 g/dL (3.5-5.0); Alkaline Phosphatase 109 U/L (39-117); Anion Gap 16 (12-20); Aspartate Amino Transferase 37 U/L (5-37); Blood Urea Nitrogen 18 mg/dL (9-16); Calcium 9.6 mg/dL (8.4-10.2); Carbon Dioxide 22 mmol/L (22-29); Chloride 106 mmol/L (96-108); Cholesterol 284 mg/dL (<200); Estimated Glomerular Filt Rate > 60; HDL Cholesterol 47 mg/dL (>40); Potassium 4.8 mmol/L (3.3-5.1); Sodium 139 mmol/L (135-145); Total Protein 8.2 g/dL (6.5-8.0); Triglycerides 211 mg/dL (<150)
== END 2025-05-28 10:59 | disposition home or self-care (01) ==
LOC: HO.HMGCLDS 10:58
PROVIDERS: PCP Nurse Practitioner Family; Visit Provider Nurse Practitioner Family
DX: Z00.00 Encounter for general adult medical examination without abnormal findings (principal); Z13.6 Encounter for screening for cardiovascular disorders
CPT/HCPCS: 36415; 80053; 80061; 81003; 82306; 84443; 85025

== ENCOUNTER 2025-06-23 14:28 | Outpatient (AMB) | payer OTHER, SELFPAY ==
[2025-06-23 14:31] VITALS: BP 100/60; PULSE 101; RESP 16; O2SAT 95; BMI 31.3
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
--- OUTSIDE RECORDS SUMMARY | 2025-06-23 17:53 | XMS_ITS | Clinical Summary ---
Author Organization [facility] Address [address] [place] [address] Phone Care Team Providers Care Building Performance Consultant Name Role Phone Rambo Silva INSTRUMENT OPERATOR Primary Care Provider + Allergies No [...] on patient's age to complete this topic IPV VACCINES Aged Out No longer eligi ble based on patient's age to complete this topic MENINGOCOCCAL VACCINES (B) Aged Out N o longer eligible based on patient's age to complete this topic PNEUMOCOCCAL VACCINES (0-49 years) Aged Out No longer eligible b ased on patient's age to complete this topic Medical Devices Not on file Insurance MEDICARE PART A & B [facility] ONE CARE MEDICARE REPLACEMENT [place] [id number] MEDICARE PART A & B ONE [facility] MEDICARE REPLACEMENT [place] [facility] MEDICARE PART A & B MEDICARE PART A & B MEDICARE PART A & B ONE [facility] MEDICARE REPLACEMENT [place] [id number] MEDICARE PART A & B MEDICARE PART A & B Member Subscriber Plan / Payer (Ef fective 2020-Present) Name:Woodrow Newman Member ID:[id number] Relation to Subscriber:Self Name:Woodrow Newman Subscriber ID:[id number] Payer ID:[id number] Group ID:Not on file Type:Medicare Address: [employer] [address] ONE CARE MEDICARE REPLACEMENT [place] [id number] MEDICARE PART A & B Member Subscriber Plan / Payer (Ef fective 2020-Present) Name:Woodrow Newman Member ID:[id number] Relation to Subscriber:Self Name:Woodrow Newman Subscriber ID:[id number] Payer ID:[id number] Group ID:Not on file Type:Medicare Address: [employer] [address] [place] [id number] [place] [address] ONE CARE MEDICARE REPLACEMENT MEDICARE PART A & B [facility] ONE CARE MEDICARE REPLACEMENT Care Teams Building Performance Consultant Relationship Specialty Start Date End Date Rambo Silva NP [address] [address] PCP - General Family Medicine 12/24/21 Additional Source Comments The information contained in this document represents components of the legal health record. It is not the complete legal health record.[facility]
== END 2025-06-23 15:21 | disposition home or self-care (01) ==
LOC: HO.HMCC 14:29
PROVIDERS: PCP Nurse Practitioner Family; Visit Provider Nurse Practitioner Family
DX: Z00.00 Encounter for general adult medical examination without abnormal findings (principal); L72.9 Follicular cyst of the skin and subcutaneous tissue, unspecified; Z23 Encounter for immunization

== ENCOUNTER → 2025-06-23 14:28 | Outpatient (BNVA) | payer OTHER, SELFPAY | PROVIDERS: PCP Nurse Practitioner Family; Visit Provider Nurse Practitioner Family | DX: Z00.00 Encounter for general adult medical examination without abnormal findings (principal); F17.210 Nicotine dependence, cigarettes, uncomplicated; L72.9 Follicular cyst of the skin and subcutaneous tissue, unspecified; Z89.611 Acquired absence of right leg above knee; Z23 Encounter for immunization | CPT/HCPCS: 90471; 90715; 96127; 99395 ==

== ENCOUNTER 2025-07-14 14:28 | Outpatient (AMB) | payer OTHER, SELFPAY ==
[2025-07-14 14:38] VITALS: BP 96/64; PULSE 96; TEMP 36.9; O2SAT 96; BMI 30.5
--- NOTE | 2025-07-14 14:38 | AM.OFFWIN_ITS ---
Intake Vital Signs 07/14/25 14:38 Height 5 ft 7 in Weight 195 lb BMI 30.5 BP 96/64 Blood Pressure Location Lt brachial Position Sitting Pulse 96 Pulse Source Pulse Oximeter Temp 98.5 F Temp Source Oral Pulse Oximetry (%) 96 Oxygen Delivery Method Room Air Intake Visit Reasons: EP Sore throat Intake Note: pt presents with sore throat a and vomiting up stomach acid for 3 days-last episode yesterday Patient Tobacco Use Status: Current everyday Tobacco user Allergies No Known Allergies Allergy (Verified 07/14/25 14:42) Do you need a note to return to daycare/school/sports/work: Yes HPI HPI Comments History of Present Illness Details History - The patient is a 29 year old male pres enting with a sore throat that started on Friday. - He experienced vomiting on Friday and Friday, which has since resolved. - He is now experiencing a loss of his v oice and a burning in his throat. - He reports associated symptoms includi ng a headache, a prior mild cough that is no longer present, and flu-like symptoms with body aches and chills following the vomiting episodes. - He denies any fever, with a reported t emperature of 98 F. - He has not taken any medications for h is symptoms and is tolerating food and drinks. - He has a history of smoking. - He has no sick contacts or recent dayana el. - He denies CP, SOB, abd pain, n/v/d. Physical Exam General: Cooperative, healthy appearing, comfortable and no acute distress Orientation/consciousness: Patient oriented x3 Limitations: No limitations Head: Normal to inspection Ears: Hearing grossly normal bilaterally, external ears normal and TM's normal bilaterally Nose: Normal external nose present, normal nares present, and no nasal discharge present. Face and sinus: Sinuses nontender to palpation. Mouth: Normal oral and palatal mucosa present and moist mucous membranes noted. Throat: Tonsils normal. Uvula is midline. Posterior oropharynx with erythema and no exudates. Eyes: Appearance normal, both eyes and all related structures Neck: Normal visual inspection, full ROM. No lymphadenopathy noted. Respiratory: Clear to auscultation bilaterally. Normal respiratory effort, able to speak in complete sentences. No respiratory distress, not tachypneic, no tripod positioning and no use of accessory muscles. Cardiovascular: Regular rate and rhythm. Normal S1 and S2 Skin: No rashes or lesions noted Patient was informed and verbally consented to the use of an ambient scribe for clinic note documentation during this visit [facility] Surgical History No pertinent past surgical history Social History Housing: House Patient Tobacco Use Status: Current everyday Tobacco user Cigarettes Per Day: 5 e-Cigarette/Vaping Use: Never Used service: No Current occupational status: employed Cognitive needs: No Hearing needs: No Vision needs: Yes Review of Systems Const All systems reviewed & are unremarkable except as noted in HPI and below Physical Exam Vital Signs: Last Vital Signs Temp 98.5 F 07/14/25 14:38 Pulse 96 07/14/25 14:38 BP 96/64 07/14/25 14:38 Pulse Ox 96 07/14/25 14:38 Oxygen Delivery Method Room Air 07/14/25 14:38 BMI result Body Mass Index 30.5 Results AMB Rapid Strep AMB Rapid Strep Negative Last Edit by Trina Warner CMA on 07/14/25 15:2 3 Assessment & Plan Assessment & Plan (1) Sore throat: Code(s): J02.9 - Acute pharyngitis, unspecified Plan Most likely Acute Pharyngitis vs viral illness vs flu vs hoarseness after vomiting rapid strep is negative plan - The sore throat is suspected to be due to irritation from gastric acid following recent vomiting episodes, as physical examination did not reveal typical signs of streptococcal infection such as white patches or swollen lymph nodes. - To rule out a bacterial cause, a rapid throat culture for strep will be performed. - will order a covid/flu/RSV test in the office today - The patient will be notified of the test results. - Recommend salt water gargles, tylenol or motrin as needed - Diet as tolerated. - A work excuse note will be provided for the rest of the week, with an expected return to work on Friday. Orders: Orders SARS-CoV2/FLU/RSV Today R09.89 - Other specified symptoms and signs involving the circulatory and respiratory systems AMB Rapid Strep Screen Today J02.9 - Acute pharyngitis, unspecified Coding Level of Care Code Est Pt Level 3 (60863) Diagnoses Sore throat J02.9
--- OUTSIDE RECORDS SUMMARY | 2025-07-14 20:09 | XMS_ITS | Clinical Summary ---
Author Organization [facility] Address [address] [place] [address] Phone Care Team Providers Care Organic Preparation Analyst Name Role Phone Rambo Silva LENS MOLD SETTER Primary Care Provider + Allergies No known [...] file Insurance MEDICARE PART A & B [facility] ONE CARE MEDICARE REPLACEMENT [place] [id number] MEDICARE PART A & B ONE CARE MEDICARE REPLACEMENT [place] [id number] MEDICARE PART A & B MEDICARE PART A & B MEDICARE PART A & B [facility] ONE [facility] MEDICARE REPLACEMENT MEDICARE PART A & B MEDICARE PART A & B ONE CARE MEDICARE REPLACEMENT Member Subscriber Plan / Payer (Ef fective 2022-) Name:Woodrow Newman Relation to Subscriber:Self Name:Woodrow Newman Payer ID:[id number] (NAIC) Group ID:[id number] Type:Medicare [address] [facility] MEDICARE PART A & B CARE MEDICARE REPLACEMENT [place] [facility] MEDICARE PART A & B [facility] ONE CARE MEDICARE REPLACEMENT Care Teams Organic Preparation Analyst Relationship Specialty Start Date End Date Rambo Silva NP [facility] [address] PCP - General Family Medicine 12/24/21 Additional Source Comments The information contained in this document represents components of the legal health record. It is not the complete legal health record.[facility]
== END 2025-07-14 15:31 | disposition home or self-care (01) ==
PROVIDERS: PCP Nurse Practitioner Family; Visit Provider Physician Assistant Medical
DX: J02.9 Acute pharyngitis, unspecified (principal)

== ENCOUNTER 2025-07-14 14:28 | Outpatient (REF) | payer OTHER, SELFPAY ==
[2025-07-14 17:11] LABS: Resp Syncy Virus RNA Qual PCR NEGATIVE (Negative); SARS COV2 PCR INHOUSE NEGATIVE (Negative)
== END 2025-07-14 14:29 | disposition home or self-care (01) ==
LOC: HO.LAB 14:28
PROVIDERS: Family Medicine; PCP Nurse Practitioner Family; Visit Provider Physician Assistant Medical
DX: R09.89 Other specified symptoms and signs involving the circulatory and respiratory systems (principal); R04.2 Hemoptysis
CPT/HCPCS: 87637; 87880; 99212

== ENCOUNTER 2025-07-26 09:46 | Outpatient (AMB) | payer OTHER, SELFPAY ==
--- NOTE | 2025-07-26 09:59 | AM.OFFWIN_ITS ---
Intake Vital Signs 07/26/25 10:00 Height 5 ft 7 in Weight 195 lb BMI 30.5 BP 110/64 Blood Pressure Location Rt brachial Position Sitting Pulse 112 H Pulse Source Pulse Oximeter Temp 98.2 F Temp Source Oral Pulse Oximetry (%) 96 Oxygen Delivery Method Room Air Intake Visit Reasons: EP-rt inner thigh lump Intake Note: pt presents with worsening and painful growth on right amputated leg Patient Tobacco Use Status: Current everyday Tobacco user Allergies No Known Allergies Allergy (Verified 07/26/25 10:02) Medication List - Last Reconciled 07/26/25 by Gabriele Antoine MD bupropion HCl XL 300 mg PO DAILY cephalexin 500 mg PO BID 7 days clonidine HCl 0.2 mg PO TID gabapentin 300 mg PO TID omeprazole 20 mg PO DAILY quetiapine 100 mg PO BEDTIME Do you need a note to return to daycare/school/sports/work: Yes HPI EP-rt inner thigh lump HPI Details History of Present Illness The patient is a 29 year old male presenting with a suspected skin abscess. Recurrent skin abscess: - The patient presents with what he abhishek eves is a skin abscess, a recurrent issue for him. - He has a history of right above-knee a mputation and wears a prosthetic, which causes friction against his skin, leading to skin abrasion, pain, cellulitis, and the formation of boils. - The current abscess is located where t he prosthetic rubs, though he usually gets them in other areas as well. - The patient has tried Keflex in the [facility] for this issue, but it was not effective. - He has not discussed these recurrent s kin problems with his chief contract officer in [place]. Medical History: - Recurrent skin abscesses and boils, pa rticularly related to prosthetic use. - Cellulitis secondary to skin friction. - No known allergies were mentioned, but the patient reports sweating a lot. Surgical History: - Right above-knee amputation. Medications: - Keflex: Previously prescribed for recu rrent skin issues, reported as not working. Social History: - Employment: The patient works and is r equired to stand a lot on his leg. - Functional Status: The patient uses a prosthetic for his right above-knee a mputation and was recently fitted for a new one. - Family status: The patient attended e visit with his mother. Problem List - Recurrent skin abscess - Cellulitis - Right above-knee amputation Plan - Prescribed doxycycline, one tablet twi ce daily, for the inflamed skin lesion. - The prescription for doxycycline will be for 30 tablets to be taken for one week, with refills available if needed. - The prescription will be sent to [facility]. - Recommended preventive measures such a s applying powder to reduce friction or using a barrier like a Band-Aid over the area before putting on the prosthetic. - Advised the patient to follow up with his primary care provider, Rambo, and his chief contract officer in [place] to discuss long-term prevention of recurrent skin breakdown. - Encouraged the patient to have his mot her accompany him to future appointments to help explain the situation. - [facility]. Review of Systems - General: No fever no chills - Neurological: No headaches no dizziness - Ear nose throat: No sore throat no hearing difficulty no ear pain - Cardiovascular: No syncope, no chest pain, no palpitations - Gastrointestinal: No nausea vomiting or diarrhea Physical Exam General: No acute distress HEENT: No acute findings Neck: Supple Respiratory system: Able to talk in full sentences, no audible wheeze Gastrointestinal: No pain Extremities: Right leg above knee amputation, prostatic friction causing skin abrasion and pain [place] UNDERWRITER: Alert awake oriented x3 motor intact Skin: Inflamed with cellulitis and formation of boils, right upper leg, AKA [facility] Surgical History No pertinent past surgical history Social History Housing: House Patient Tobacco Use Status: Current everyday Tobacco user Cigarettes Per Day: 5 e-Cigarette/Vaping Use: Never Used service: No Current occupational status: employed Cognitive needs: No Hearing needs: No Vision needs: Yes Physical Exam Vital Signs: Last Vital Signs Temp 98.2 F 07/26/25 10:00 Pulse 112 H 07/26/25 10:00 BP 110/64 07/26/25 10:00 Pulse Ox 96 07/26/25 10:00 Oxygen Delivery Method Room Air 07/26/25 10:00 BMI result Body Mass Index 30.5 Assessment & Plan Assessment & Plan (1) AKA stump complication: Code(s): T87.9 - Unspecified complications of amputation stump (2) Recurrent cellulitis of thigh: Code(s): L03.119 - Cellulitis of unspecified part of limb Plan Problem List - Recurrent skin abscess - Cellulitis - Right above-knee amputation Plan - Prescribed doxycycline, one tablet twice daily, for the inflamed skin lesion. - The prescription for doxycycline will be for 30 tablets to be taken for one week, with refills available if needed. - The prescription will be sent to [facility]. - Recommended preventive measures such as applying powder to reduce friction or using a barrier like a Band-Aid over the area before putting on the prosthetic. - Advised the patient to follow up with his primary care provider, Rambo, and his chief contract officer in [place] to discuss long-term prevention of recurrent skin breakdown. - Encouraged the patient to have his mother accompany him to future appointments to help explain the situation. - A work note will be provided for the patient for as many days as needed. Medications: New doxycycline hyclate 100 mg PO BID 14 caps 2RF Coding Level of Care Code Est Pt Level 4 (91100) Diagnoses AKA stump complication T87.9 Recurrent cellulitis of thigh L03.119
[2025-07-26 10:00] VITALS: BP 110/64; PULSE 112; TEMP 36.8; O2SAT 96; BMI 30.5
--- OUTSIDE RECORDS SUMMARY | 2025-07-26 11:37 | XMS_ITS | Clinical Summary ---
Author Organization [facility] Address [address] [place] [id number] Phone Care Team Providers Care Foxing Closer Name Role Phone Rambo Silva MECHANICAL PIPING DESIGNER Primary Care Provider + Allergies No known [...] file Insurance MEDICARE PART A & B [facility] ONE CARE MEDICARE REPLACEMENT [place] [id number] MEDICARE PART A & B ONE CARE MEDICARE REPLACEMENT [place] [id number] MEDICARE PART A & B MEDICARE PART A & B MEDICARE PART A & B [facility]PLAC[facility] MEDICARE PART A & B MEDICARE PART A & B ONE CARE MEDICARE REPLACEMENT Member Subscriber Plan / Payer (Ef fective 2022-) Name:Woodrow Newman Relation to Subscriber:Self Name:Woodrow Newman Payer ID:[id number] (NAIC) Group ID:[id number] Type:Medicare [address] [facility] MEDIC[facility] PART A & B CARE MEDICARE REPLACEMENT [place] [facility] MEDICARE PART A & B [facility] ONE CARE MEDICARE REPLACEMENT Care Teams Foxing Closer Relationship Specialty Start Date End Date Rambo Silva NP [facility] [place] [address] PCP - General Family Medicine 12/24/21 Additional Source Comments The information contained in this document represents components of the legal health record. It is not the complete legal health record.[facility]
== END 2025-07-26 10:15 | disposition home or self-care (01) ==
PROVIDERS: PCP Nurse Practitioner Family; Visit Provider Internal Medicine
DX: T87.9 Unspecified complications of amputation stump (principal); L03.119 Cellulitis of unspecified part of limb

== ENCOUNTER → 2025-07-26 09:46 | Outpatient (BNVA) | payer OTHER, SELFPAY | PROVIDERS: PCP Nurse Practitioner Family; Visit Provider Internal Medicine | DX: T87.41 Infection of amputation stump, right upper extremity (principal); L03.115 Cellulitis of right lower limb; Z89.611 Acquired absence of right leg above knee | CPT/HCPCS: 99212 ==

== ENCOUNTER 2025-08-09 08:36 | Outpatient (REF) | payer OTHER, SELFPAY ==
--- NOTE | ~2025-08-09 | US_ITS ---
CLINICAL HISTORY: R74.8 - Abnormal levels of other serum enzymes US abdomen complete Comparison: None provided Findings: The visualized pancreas is normal. The aorta and inferior vena cava are normal caliber. The appearance of the liver suggests fatty infiltration. There is no intrahepatic bile duct dilatation. The common duct is 2.4 mm in diameter. There is a 2.3 mm gallbladder polyp. The gallbladder is otherwise normal. There is no sonographic Walker sign. The main portal vein is antegrade. The right kidney is 9.9 cm in length. The left kidney is 10.7 cm in length. The spleen is normal. No ascites. IMPRESSION: 1. Hepatic steatosis. 2. Gallbladder polyp This document has been electronically signed by: Frank Watts MD on 08/10/2025 10:13:36
--- OUTSIDE RECORDS SUMMARY | 2025-08-09 10:23 | XMS_ITS | Clinical Summary ---
Author Organization [facility] Address [address] [place] [phone] Phone Care Team Providers Care Personnel Quality Assurance Auditor Name Role Phone Rambo Silva CELEBRITY MANAGER Primary Care Provider + Allergies No known [...] Insurance MEDICARE PART A & B [facility] ONE CARE MEDICARE REPLACEMENT [place] [id number] MEDICARE PART A & B ONE CARE MEDICARE REPLACEMENT [place] [id number] MEDICARE PART A & B MEDICARE PART A & B MEDICARE PART A & B [facility] ONE [facility] MEDIC[facility] REPLACEMENT MEDICARE PART A & B MEDICARE PART A & B ONE CARE MEDICARE REPLACEMENT Member Subscriber Plan / Payer (Ef fective 2022-) Name:Woodrow Newman Relation to Subscriber:Self Name:Woodrow Newman Payer ID:[id number] (NAIC) Group ID:[id number] Type:Medicare [address] [facility] MEDICARE PART A & B CARE MEDICARE REPLACEMENT [place] [facility] MEDICARE PART A & B [facility] ONE CARE MEDICARE REPLACEMENT Care Teams Personnel Quality Assurance Auditor Relationship Specialty Start Date End Date Rambo Silva NP [facility] [place] [address] PCP - General Family Medicine 12/24/21 Additional Source Comments The information contained in this document represents components of the legal health record. It is not the complete legal health record.[facility]
== END 2025-08-09 08:37 | disposition home or self-care (01) ==
LOC: HO.HMGCX 08:36
PROVIDERS: PCP Nurse Practitioner Family; Visit Provider Nurse Practitioner Family
DX: R74.8 Abnormal levels of other serum enzymes (principal)
CPT/HCPCS: 76700

== ENCOUNTER → 2025-08-09 08:38 | Outpatient (BNV) | payer OTHER, SELFPAY | PROVIDERS: PCP Nurse Practitioner Family; Visit Provider Specialist | DX: K76.0 Fatty (change of) liver, not elsewhere classified (principal); K82.4 Cholesterolosis of gallbladder | CPT/HCPCS: 76700 ==